=== PATIENT | male | born 1955 | race Caucasian/White ===

== ENCOUNTER → 2023-08-25 | Outpatient (CLI) | payer OTHER ==
[~2023-08-25] MED LIST: ACET325 PO; ACYC400; ACYC400 PO; AMPI250; AMPI250 PO; Advil100 MG PO; Colace100 MG PO; Flomax0.4 MG PO; GABA100 PO; GABA300; HYDR1TAB94 PO; IBUP400; OMEP20ER; OXYACE5T; Percocet 5-3251 EACH PO; ROXICODONE5 MG PO; TAMS.4ER PO; Tylenol325 MG PO; Zofran8 MG PO
== END ==
LOC: LAB 13:51 → LAB SHORT 13:51
DX: J02.9 Acute pharyngitis, unspecified (principal)
CPT/HCPCS: 87081

== ENCOUNTER → 2025-08-18 | Outpatient (CLI) | payer OTHER | LOC: LAB SHORT 10:15 → LAB 10:15 | DX: L03.312 Cellulitis of back [any part except buttock and flank] (principal) | CPT/HCPCS: 87070; 87075; 87076; 87205 ==